=== PATIENT | female | born 1955 ===

== ENCOUNTER 2016-11-03 13:06 | Emergency (ER) | payer BC ==
--- NOTE | 2016-11-03 13:51 | ED ---
Lower Extremity - HPI Summary HPI Summary: Patient was bowling four nights ago when her "hip caught" and she had pain in the hip. She thought it would improve but over the days it has become more painful. She has a history of left hip fracture and worried she might had a fracture in her right hip too. She is able to bear weight with increasing pain, so she went to [facility] where x-rays were read as possibly positive, therefore she was sent to the ED for further evaluation. She denies N/T or shortening of the limb. She has not taken anything for pain today. - History of Current Complaint Chief Complaint: EDExtremityLower Stated Complaint: RT HIP PAIN Time Seen by Provider: 11/03/16 13:45 Hx Obtained From: Patient Mechanism Of Injury: Twisted Onset of Pain: Immediate Onset/Duration: Minutes Severity Initially: Mild Severity Currently: Severe Pain Intensity: 6 Timing: Constant Location: Is Discrete @ - right hip Character Of Pain: Sharp, Aching Associated Signs And Symptoms: Positive: Negative Aggravating Factor(s): Standing, Ambulation Alleviating Factor(s): Rest Able to Bear Weight: Yes - with pain - Allergies/Home Medications Allergies/Adverse Reactions: Allergies Allergy/AdvReac Type Severity Reaction Status Date / Time No Known Allergies Allergy Verified 11/03/16 13:08 PMH/Surg Hx/FS Hx/Imm Hx Musculoskeletal History: Reports: Hx Joint Replacement - left hip - Surgical History Surgery Procedure, Year, and Place: left hip replacement Infectious Disease History: No Infectious Disease History: Denies: Traveled Outside the [place] in Last 30 Days - Social History Occupation: Employed Full-time Lives: With Family Alcohol Use: Rare Substance Use Type: Reports: None Smoking Status (MU): Never Smoked Tobacco Review of Systems Negative: Fever, Chills Positive: Arthralgia - right hip, Myalgia Negative: Bruising All Other Systems Reviewed And Are Negative: Yes Physical Exam Triage Information Reviewed: Yes Vital Signs On Initial Exam: Initial Vitals Temp Pulse Resp BP Pulse Ox 99.8 F 92 16 166/98 100 11/03/16 13:08 11/03/16 13:08 11/03/16 13:08 11/03/16 13:08 11/03/16 13:08 Vital Signs Reviewed: Yes Appearance: Positive: Well-Appearing, Well-Nourished, Pain Distress Skin: Positive: Warm, Skin Color Reflects Adequate Perfusion, Dry, Soft Head/Face: Positive: Normal Head/Face Inspection Eyes: Positive: EOMI, TRACE, Conjunctiva Clear ENT: Positive: Hearing grossly normal Respiratory/Lung Sounds: Positive: Breath Sounds Present Cardiovascular: Positive: RRR Musculoskeletal: Positive: Pain @. Negative: Edema Right Neurological: Positive: Sensory/Motor Intact, Alert, Oriented to Person Place, Time, NV Bundle Intact Distally, Abnormal Gait Psychiatric: Positive: Affect/Mood Appropriate AVPU Assessment: Alert Diagnostics - Vital Signs Vital Signs Temp Pulse Resp BP Pulse Ox 11/03/16 13:08 99.8 F 92 16 166/98 100 - Laboratory Lab Statement: Any lab studies that have been ordered have been reviewed, and results considered in the medical decision making process. - CT No standard instances CT Interpretation: No Acute Changes CT Interpretation Completed By: Radiologist Lower Extremity Course/Dx - Diagnoses Differential Diagnosis/HQI/PQRI: Positive: Arthritis, Bursitis, Cellulitis, Contusion, Fracture (Closed), Infection, Sprain, Strain Provider Diagnoses: Right hip pain, Osteoarthritis Discharge - Discharge Plan Condition: Stable Disposition: HOME Patient Education Materials: Osteoarthritis (ED) Referrals: Michael Rodriguez MD [Medical Doctor] - Additional Instructions: Please call Dr. Rodriguez's office for an appointment in [place] in 3-5 days for evaluation. Use your cane or walker to take pressure off your hip, and use 600mg of ibuprofen three times daily with meals for the next 3-5 days to decrease swelling and pain. Return to the emergency department if symptom worsen.
[2016-11-03] MEDS ORDERED: Ibuprofen TAB* 400 MG PO ONE (14:16)
--- NOTE | 2016-11-03 14:20 | RAD ---
Indication: RIGHT hip pain following bowling on Tuesday. Post LEFT hip replacement. Comparison: None. Technique: Noncontrast CT through the mid to lower pelvis and proximal femurs. Multiplanar reformation. Report: Artifact from the LEFT hip prosthesis. No suspicious finding of the visualized pelvic viscera. Negative for free pelvic fluid. Negative for lymphadenopathy within the [id number]. Negative for superficial or retroperitoneal hematoma. No CT evidence for fracture of the RIGHT proximal femur or visualized pelvis. Severe superior joint space narrowing at the RIGHT hip as well as advanced marginal osteophytosis, partial loss of femoral head sphericity, and acetabular roof subchondral sclerosis and subchondral cyst formation with 1.6 x 1.2 x 1.9 cm subchondral cyst. Probable chronically fragmented osteophytes at the acetabular margin. Only a small volume of RIGHT hip joint fluid evident. No CT stigmata of LEFT hip prosthesis loosening or periprosthetic fracture. Diffuse predominant mild muscle atrophy with more significant atrophy of the LEFT gluteus medius and gluteus tonya muscles. IMPRESSION: 1. No CT evidence for RIGHT femur or pelvic fracture or articular malalignment. 2. Advanced osteoarthritis of the RIGHT hip; Kellgren and Devang grade 4. 3. Post LEFT hip replacement without suspicious finding.
[2016-11-03 15:39] VITALS: BP 149/92
== END 2016-11-03 15:45 | disposition home or self-care (01) ==
LOC: ED 13:06 → MERGE 13:06 → ED 15:45
DX: M16.11 Unilateral primary osteoarthritis, right hip (principal); M25.551 Pain in right hip
CPT/HCPCS: 99285; A9270-GY

== ENCOUNTER 2017-06-27 10:18 | Inpatient (IN) | payer BC ==
--- NOTE | 2017-06-17 18:56 | HP ---
PREOPERATIVE HISTORY AND PHYSICAL: DATE OF ADMISSION: 06/27/17 PROVIDER: Dr. Michael Rodriguez * (DICTATED BY FELICE DRAPER) CHIEF COMPLAINT: Right hip pain. HISTORY OF PRESENT ILLNESS: Ms. Brown is a 62-year-old female who has had ongoing trouble with her right hip over the past year. She was initially taking ibuprofen and Tylenol; however, pain began to become more severe. She has a lot of stiffness when she gets up in the morning and if she has been sitting for a prolonged period of time. She has difficulty sleeping. She is unable to ambulate significant distances and is interested in surgical intervention for correction of the problem at this point. PAST MEDICAL HISTORY: Hypertension. PAST SURGICAL HISTORY: Tonsillectomy in 1965, cholecystectomy in 1991, ruptured ectopic in 1981 and 1993, tubal ligation, left hip replacement in 2005. She reports significant nausea with anesthesia as well. CURRENT MEDICATIONS: 1. Multivitamin 1 p.o. q. day. 2. Tramadol 50 mg as needed for pain. 3. Prilosec over the counter once daily. 4. Advil 200 mg p.o. as needed. ALLERGIES: NAPROXEN causes an upset stomach, OXYCODONE causes severe nausea. FAMILY HISTORY: Positive for heart disease and diabetes. SOCIAL HISTORY: She is . She works for [employer]. She lives with her . She is a social services coordinator. She quit smoking 20 years ago and reports that she was "a social smoker" prior to that. She drinks alcoholic beverages occasionally. She exercises sporadically. REVIEW OF SYSTEMS: Constitutional: Negative for recent hospitalizations, fevers, chills, night sweats, or unexplained weight loss. Head: Negative for headaches, lightheadedness, or balance problems. Cardiovascular: Negative for chest or arm pain with exertion, history of heart attack, heart murmur, heart palpitations. Positive for high blood pressure. Negative for embolism or deep vein thrombosis. Respiratory: Negative for chronic cough, shortness of breath with exertion, asthma, or COPD. Gastrointestinal: Positive for heartburn. Negative for nausea, vomiting, diarrhea, or constipation. Negative for GERD. Genitourinary: Negative for nighttime urination, frequency of urination, urinary tract infections, or kidney problem. Musculoskeletal: Negative for chronic back pain. Negative for recent fracture. Skin: Negative for rashes, lesions, lumps, or sores. Neurologic: Negative for seizure, stroke, epilepsy, depression, or anxiety. Endocrine: Negative for diabetes or thyroid problems. Hematology: Negative for easy bleeding, bruising, or anemia. PHYSICAL EXAMINATION GENERAL: She is a well-developed, well-nourished female, in no acute distress at rest. She is alert and oriented x3 with appropriate mood and affect. Gait: She ambulates with a nonantalgic gait. VITAL SIGNS: The patient is 5 feet 5 inches, 185 pounds, blood pressure 142/78 , pulse 65, temperature 98.6. HEENT: Normocephalic, atraumatic. Hearing and vision are grossly intact. NECK: Trachea is midline. RESPIRATORY: Lungs are clear to auscultation bilaterally. No wheezes, rales, or rhonchi. CARDIOVASCULAR: Regular rate and rhythm. No murmurs, rubs, or gallops. Normal S1, S2. ABDOMEN: Soft, nondistended, nontender. Normal bowel sounds. EXTREMITIES: Exam of the right hip, motion of the hip is painful. She has 5 to 10 degrees of internal rotation, 20 degrees of external rotation, but more painful. She flexes her hip to 90 degrees. She has good strength with all range of motion and there is good stability to the hip. Sensation to light touch is intact distally. She has a normal vascular exam. DIAGNOSTIC STUDIES: X-rays of the hip show significant loss of the joint space without osteoarthritic changes. IMPRESSION: Right hip osteoarthritis. PLAN: The patient is to undergo right total hip arthroplasty by Dr. Rodriguez, . The risks, benefits, and postoperative course were discussed with the patient at length and she would like to proceed. A prescription for [place] was sent to the patient's pharmacy for postoperative pain as the OXYCODONE gives her significant nausea. She reports that she had good pain control with previous surgeries using the [place]. She was also given a prescription for Coumadin for postop DVT prophylaxis. She was placed on a course of doxycycline for a recent tick bite to her shoulder; however, she denies any significant arthralgias or any sort of rash. All of her questions were answered to her full satisfaction. She is understanding to call should she develop any problems or concerns. FELICE DRAPER [id number]/[facility] #: [id number] ERA
[~2017-06-27 10:18] MED LIST: Buffered Lidocaine 0.9% SYRIN* 5 ML/SYR SYRINGE INTRADERM ONE; Famotidine IV* 10 MG/ML 2 ML (20 mg) IV ONE
[2017-06-27] MEDS ORDERED: Famotidine IV* 10 MG/ML 2 ML (20 mg) ONE (10:29)
[2017-06-27] MEDS ORDERED: Buffered Lidocaine 0.9% SYRIN* 5 ML/SYR SYRINGE ONE (10:29)
[2017-06-27] MEDS ORDERED: ceFAZolin 2 GM PREMIX (*) 2 GM/50 ML BAG IVPB ONE (10:30)
[2017-06-27] MEDS ORDERED: Ketorolac INJ* 30 MG/ML 1 ML VIAL ONE (11:11)
[2017-06-27] MEDS ORDERED: Ondansetron INJ* 2 MG/ML VIAL ONE (11:11)
[2017-06-27] MEDS ORDERED: Propofol* 10 MG/ML 20 ML BTL IV PUSH ONE ×2 (11:11→14:04)
[2017-06-27] MEDS ORDERED: fentaNYL* 50 MCG/ML 2 ML VIAL (100 MCG VIAL) ONE (11:11)
[2017-06-27] MEDS ORDERED: Midazolam* 1 MG/ML 5 ML VIAL (5 MG) ONE (11:11)
[2017-06-27] MEDS ORDERED: KETAMINE HCL* 50 MG/ML 10 ML VIAL ONE (11:11)
[2017-06-27] MEDS ORDERED: Lidocaine 2% PF * 5 ML VIAL ONE (11:11)
[2017-06-27] MEDS ORDERED: Dexamethasone IV* 4 MG/ML 1 ML (4 MG) ONE (11:11)
[2017-06-27] MEDS ORDERED: Bupivacaine 0.5% SDV PF* 30 ML VIAL ONE (12:00)
[2017-06-27] MEDS ORDERED: Morphine PF AMP (0.5MG/ML)* 5 MG/10 ML AMP ONE (12:00)
[2017-06-27] MEDS ORDERED: Midazolam* 1 MG/ML 2 ML VIAL (2 MG) ONE ×2 (12:41→13:28)
[2017-06-27] MEDS ORDERED: Phenylephrine IV* 40 MCG/ML 10 ML SYRINGE ONE (12:59)
[2017-06-27] MEDS ORDERED: Phenylephrine INJ* 10 MG/ML 1 ML VIAL (10 MG) ONE (13:00)
[2017-06-27] MEDS ORDERED: Propofol* 500 MG/50 ML BTL ONE (13:09)
[2017-06-27] MEDS ORDERED: diPHENhydraMINE IV* 50 MG/ML 1 ml VIAL (BENADRYL) ONE (13:28)
[2017-06-27] MEDS ORDERED: fentaNYL* 50 MCG/ML 2 ML VIAL (100 MCG VIAL) IV PRN (13:57)
[2017-06-27] MEDS ORDERED: Phenylephrine INJ* 50 MG in NS 0.9% 250 ML* 245 ML IV PRN (13:57)
[2017-06-27] MEDS ORDERED: Ondansetron ODT TAB* 4 MG PO PRN (13:57)
[2017-06-27] MEDS ORDERED: Naloxone* 0.4 MG/ML 1 ML VIAL IV PRN (14:06)
[2017-06-27] MEDS ORDERED: Ketorolac INJ* 30 MG/ML 1 ML VIAL IV PRN (14:06)
[2017-06-27] MEDS ORDERED: Ondansetron INJ* 2 MG/ML VIAL IV PRN (14:06)
[2017-06-27] MEDS ORDERED: Bisacodyl SUPP* 10 MG SUPP PR PRN (14:57)
[2017-06-27] MEDS ORDERED: Polyethylene Glycol 3350* 17 GM PACKET PO PRN (14:57)
[2017-06-27] MEDS ORDERED: D5W 1/2 NS 1000 ML BAG* 1,000 ML IV SCH (15:00)
--- NOTE | 2017-06-27 15:58 | RAD ---
Indication: Postop RIGHT total hip replacement. Comparison: May 31, 2017 Technique: Low AP pelvis supine technique 1520 hours Report: RIGHT total hip prosthesis in place with normal alignment in the AP projection. No periprosthetic fracture evident in the AP projection. Overlying cutaneous lanie, soft tissue edema, and subcutaneous emphysema. IMPRESSION: Unremarkable immediate postop RIGHT total hip prosthesis in the AP projection.
[2017-06-27] MEDS: Metoprolol Succinate XL TAB* 50 MG PO SCH (17:46)
[2017-06-27] MEDS: diPHENhydraMINE IV* 50 MG/ML 1 ml VIAL (BENADRYL) IV PRN (19:53)
[2017-06-27] MEDS: HYDROcodone/ACETAMIN 5-325 MG* 1 TAB PO PRN ×2 (19:57→23:32)
[2017-06-27] MEDS: Docusate CAP* 100 MG PO SCH (20:34)
[2017-06-27] MEDS: ceFAZolin 1 GM VIAL(*) 1 GM in NS 0.9% 50 ML* 50 ML IVPB SCH (20:34)
[2017-06-27] MEDS: Ferrous Sulfate TAB* 325 MG PO SCH (20:34)
[2017-06-27] MEDS: Omeprazole CAP* 20 MG PO SCH (20:34)
[2017-06-27] MEDS: Magnesium Hydroxide LIQ* 30 ML UDC PO SCH (20:34)
[2017-06-27] MEDS ORDERED: Warfarin TAB(*) 4 MG PO ONE (21:00)
[2017-06-28] MEDS: diPHENhydraMINE IV* 50 MG/ML 1 ml VIAL (BENADRYL) IV PRN (02:07)
--- NOTE | 2017-06-28 04:02 | OP ---
OPERATIVE REPORT: DATE OF OPERATION: 06/27/17 - Inpatient, room SSU 341-02 DATE OF : 57 SURGEON: Michael Rodriguez MD. NURSING TECHN: Paola Ferrer RPA. ANESTHESIOLOGIST: Yonny Garvey MD ANESTHESIA: Spinal sedation. PRE-OP DIAGNOSIS: Osteoarthritis, right hip. POST-OP DIAGNOSIS: Osteoarthritis, right hip. OPERATIVE PROCEDURE: Right total hip arthroplasty. ESTIMATED BLOOD LOSS: Less than 150 cc. COMPLICATIONS: None. HARDWARE: Hayes M/L taper 7.5 stem, standard offset with reduced neck. Fib 48 mm Continuum cup with 15-degree elevated liner, vitamin E impregnated, -3.5 mm, 32 mm femoral head. SUMMARY: Mrs. Brown is a 62-year-old female who has been having more troubles with her right hip over the past year. She had been treated conservatively with anti-inflammatories and pain killers but she has become more and more limited in her ability to get up and get around. I discussed with her that a total hip arthroplasty should work well to decrease her pain and improve her function. She had previously undergone a left total hip arthroplasty and did understand risks of surgery such as infection, scar formation, stiffness, DVT, pulmonary embolism, hardware failure, and leg length discrepancy. She had been declared medically optimized prior to surgery and wished to proceed. DESCRIPTION OF PROCEDURE: The patient was brought to the OR and spinal anesthesia was introduced. Aviles catheter was placed. She was then rolled into the left lateral decubitus position and an axillary roll was placed. She reported she was quite comfortable. Right hip area was prepped and then draped. Incision was made centered on the greater trochanter extending proximally and distally for about 9 cm. Incision was carried down through the skin and subcutaneous fat. Small bleeders encountered were ligated using electrocautery. Fascia was found and sharp incision of the fascia was made. Muscle was split bluntly proximally. Charnley retractor was placed and bursa over the greater trochanter was taken down using electrocautery. Sharp Hohmann was placed under the gluteus medius/gluteus minimus and nice exposure of the piriformis and short external rotators was obtained. Using electrocautery, short external rotators and capsule were taken down from the posterior aspect of the greater trochanter and a gush of clear joint fluid was obtained. T- capsulotomy was made and hip was then easily dislocated. A cutting guide was placed and the femoral neck was marked. The femoral head was then resected. Anterior and inferior acetabular retractors were placed and nice exposure to the acetabulum was obtained. Capsule was peeled away from labrum and labrum was sharply incised, so that capsule could later be repaired. Her femoral head was smaller than she was templated as I templated her at about 48 mm femoral head with a 54 cup, but her femoral head only measured approximately 44 mm. Beginning with a 42 mm, acetabulums were deepened and then expanded. Osteophytes were taken down anteriorly as these were fairly easily pliable and seemed to be continuous with the labrum. I also had been concerned not to medialize her much because I thought we would need an extended offset and I did not want to have to use a longer head. At 47 mm, had a nice [id number] fit, and a 48-mm cup was then impacted in. One screw was placed and nice bite was obtained. Trial liner was placed and attention was turned to the proximal femur. Box osteotome was used to open the femoral canal and the intramedullary guide was placed. Beginning with a 5 broach, she was progressively broached. She had templated to a 9, but considering that the head was smaller than what I had and that I had a nice bite at 7.5, I felt we were good at that point. She was trialed with an extended offset standard and then reduced offset, and I liked the fit of the reduced offset best. She was then trialed with a 0 and minus head and she seemed a little bit long with a 0. She had very good stability with flexion, but when coming into the internal rotation at about 30 degrees, she would then start to subluxate, so that she would be out by 45 degrees. Trial parts were removed and elevated liner was impacted into place. A 7.5 mm stent was also impacted in place and she was again trialed with the minus and 0 heads. I liked the minus head best and a -3.5, 32 mm head was then impacted into place. Her stability had improved where she did not start to lever out until about 70 degrees of internal rotation. She was also not tight in extension. Hip was copiously pulse lavaged. Capsule and short external rotators were repaired together to the posterior aspect of the greater trochanter. Fascia was repaired using interrupted #1 Vicryl sutures and the subcutaneous fat was repaired in layers. Skin was closed using lanie. Sterile dressing was applied and the patient was then rolled onto the hospital bed. She was then stable on transfer to the recovery room. [id number]/[facility] #: [id number] MTDD
[2017-06-28] MEDS ORDERED: Ondansetron TAB* 4 MG PO PRN (04:35)
[2017-06-28] MEDS ORDERED: diPHENhydraMINE IV* 50 MG/ML 1 ml VIAL (BENADRYL) IV PRN (04:35)
[2017-06-28] MEDS ORDERED: Morphine INJ* 10 MG/ML 1 ML CARPUJECT IV PRN (04:35)
[2017-06-28] MEDS ORDERED: Ondansetron INJ* 2 MG/ML VIAL IV PRN (04:35)
[2017-06-28] MEDS ORDERED: HYDROcodone/ACETAMIN 5-325 MG* 1 TAB PO PRN (04:35)
[2017-06-28] MEDS: HYDROcodone/ACETAMIN 5-325 MG* 1 TAB PO PRN ×5 (05:00→22:37)
[2017-06-28] MEDS: ceFAZolin 1 GM VIAL(*) 1 GM in NS 0.9% 50 ML* 50 ML IVPB SCH ×2 (05:01→13:48)
[2017-06-28 05:03] LABS: Hematocrit 33 % (35-47); Hemoglobin 11.5 g/dl (12.0-16.0)
[2017-06-28 05:23] LABS: BUN/Creatinine Ratio 12.3 (8-20); Calcium 8.4 mg/dL (8.6-10.3); EGFR African American 104.2 (>60); Potassium 3.9 mmol/L (3.5-5.0)
[2017-06-28] MEDS: Omeprazole CAP* 20 MG PO SCH ×2 (08:35→19:48)
[2017-06-28] MEDS: Magnesium Hydroxide LIQ* 30 ML UDC PO SCH ×2 (08:35→19:50)
[2017-06-28] MEDS: Docusate CAP* 100 MG PO SCH ×2 (08:35→19:49)
[2017-06-28] MEDS: Vitamin THERAPEUTIC TAB PO SCH (08:36)
[2017-06-28] MEDS: Ferrous Sulfate TAB* 325 MG PO SCH ×2 (08:36→19:48)
[2017-06-28] MEDS: Heparin VIAL(*) 5000 UNITS/ML VIAL (FIVE THOUSAND) SUBCUT SCH ×2 (12:07→19:48)
--- NOTE | 2017-06-28 13:37 | PN ---
Progress Note - Progress Note Date of Service: 06/28/17 SOAP: Subjective: Pt sitting comfortably in chair. No complaint of pain. Objective: Dressing C/D/I. Calves soft, nontender. 2+ DP pulses. Sensation intact to light touch distally. Vital Signs: Temp Pulse Resp BP Pulse Ox 99.5 F 72 16 111/60 98 06/28/17 11:12 06/28/17 11:12 06/28/17 12:06 06/28/17 11:46 06/28/17 11:12 Laboratory Last Values Hgb 11.5 g/dl (12.0-16.0) L 06/28/17 04:39 Hct 33 % (35-47) L 06/28/17 04:39 INR (Anticoag Therapy) 0.93 (0.89-1.11) 06/28/17 04:39 Sodium 136 mmol/L (133-145) 06/28/17 04:39 Potassium 3.9 mmol/L (3.5-5.0) 06/28/17 04:39 Chloride 103 mmol/L (101-111) 06/28/17 04:39 Carbon Dioxide 27 mmol/L (22-32) 06/28/17 04:39 Anion Gap 6 mmol/L (2-11) 06/28/17 04:39 BUN 9 mg/dL (6-24) 06/28/17 04:39 Creatinine 0.73 mg/dL (0.51-0.95) 06/28/17 04:39 Est GFR ( Amer) 104.2 (>60) 06/28/17 04:39 Est GFR (Non-Af Amer) 81.0 (>60) 06/28/17 04:39 BUN/Creatinine Ratio 12.3 (8-20) 06/28/17 04:39 Glucose 156 mg/dL (70-100) H 06/28/17 04:39 Calcium 8.4 mg/dL (8.6-10.3) L 06/28/17 04:39 Assessment: 62 yo female s/p right LINDA POD #1 Plan: OOB PT/OT WBAT RLE Pain Control DVT prophylaxis - Coumadin 8mg tonight
[2017-06-28] MEDS ORDERED: Warfarin TAB(*) 4 MG PO ONE (17:00)
[2017-06-28] MEDS: Metoprolol Succinate XL TAB* 50 MG PO SCH (17:23)
[2017-06-29] MEDS: Acetaminophen TAB* 325 MG PO PRN ×2 (02:20→08:35)
[2017-06-29] MEDS: Heparin VIAL(*) 5000 UNITS/ML VIAL (FIVE THOUSAND) SUBCUT SCH ×2 (04:03→12:26)
[2017-06-29 05:41] LABS: Hematocrit 31 % (35-47); Hemoglobin 10.6 g/dl (12.0-16.0)
--- NOTE | 2017-06-29 08:28 | PN ---
Progress Note - Progress Note Date of Service: 06/29/17 Note: Pt reports good night. Only complaint is about how rough the toilet paper is and she had her drop off her own supply. VSS: Afebrile Labs: H/H: 10., INR: 1.67 Right hip: Wound benign, no drainage, no erythema at the wound edges, but the area where the abd pad was has a light reddish discoloration. Nontender to palpation, blanches and immediately pinks up with pressure. A: Stable P: She inquired if it would be possible to go home today. D/W her that if she does well with PT today, definitely something that can occur. Cont OOB/PT, DVT prophalaxis, care.
[2017-06-29] MEDS: Magnesium Hydroxide LIQ* 30 ML UDC PO SCH (08:31)
[2017-06-29] MEDS: Docusate CAP* 100 MG PO SCH (08:31)
[2017-06-29] MEDS: Vitamin THERAPEUTIC TAB PO SCH (08:35)
[2017-06-29] MEDS: Ferrous Sulfate TAB* 325 MG PO SCH (08:35)
[2017-06-29] MEDS: Omeprazole CAP* 20 MG PO SCH (08:35)
[2017-06-29 12:35] VITALS: BP 131/68
[2017-06-29] MEDS ORDERED: Warfarin TAB(*) 4 MG PO ONE (14:00)
--- NOTE | 2017-06-30 01:02 | DS ---
Amended report to enter cosigning physician on report. DISCHARGE SUMMARY: ADMISSION DATE: 06/27/17 DISCHARGE DATE: 06/29/17 SURGEON: Dr. Rodriguez* (dictated by FELICE Cordon). SENIOR MAINTENANCE MACHINIST: Paola Ferrer, physician news assistant. PREOP DIAGNOSIS: Osteoarthritis of the right hip. POSTOP DIAGNOSIS: Osteoarthritis of the right hip. OPERATIVE PROCEDURE: Right total hip arthroplasty. CONSULTS: Included Physical Therapy and Occupational Therapy. HISTORY OF PRESENT ILLNESS: Mrs. Brown is a 62-year-old female who had been having more troubles with her right hip over the past year. She had been treated conservatively with anti-inflammatories and painkillers, but still became more limited in her ability to get up and get around. She elected for a right total hip arthroplasty with understanding of the risks of surgery such as infection, scar formation, stiffness, DVT, pulmonary embolism, hardware failure , and leg length discrepancy. HOSPITAL COURSE: Mrs. Brown was admitted to [facility]. On 06/27, she underwent right total hip arthroplasty. Postoperatively, she recovered in the short stay surgical unit. On postop day #1, she was advanced to a regular diet without difficulty, pain was controlled well. Labs and vitals remained stable throughout her stay. She was able to weight bear as tolerated on the right lower extremity. She advanced appropriately with physical therapy and occupational therapy. DVT prophylaxis was managed with heparin and coumadin until reaching a therapeutic INR. By postop day #2, she was orthopedically and medically stable for discharge to go home with visiting nurse services. PHYSICAL EXAM: Patient was calm and cooperative in no acute distress. Alert and oriented. Vital Signs: On day of discharge, oral temperature was 98.1 Fahrenheit, pulse rate was 93 beats per minute, respiratory rate 17, oxygen saturation 95%, blood pressure 135/74. Examination of right lower extremity demonstrated the surgical incision on the posterior aspect of the hip. Incision was benign without erythema of wound edges, no drainage or visible clinical signs of infection. A dry sterile dressing was applied. Patient did have active ankle dorsiflexion and plantarflexion. 2+ palpable dorsalis pedis pulse. Sensation to light touch was intact. DIAGNOSTIC STUDIES/LAB DATA: On day of discharge, hemoglobin 10.6, hematocrit 31. INR 1.67. CONDITION ON DISCHARGE: Stable. DISCHARGE INSTRUCTIONS: Ms. Patricia Brown is a 62-year-old female on postop day #2 status post right hip arthroplasty, which was uncomplicated. She is orthopedically and medically stable for discharge to home with services. Labs and vitals signs are stable. She will restart home medications. She will take 4 mg of Coumadin tonight and will have her INR rechecked tomorrow. INRs will be drawn, Mondays and by visiting nurse services. Visiting nurse will perform wound checks and remove sutures in 10-12 days. She will remain weightbearing as tolerated on the right lower extremity. She will have home PT twice per week. She will have [place] for pain control. She will take Colace up to 3 times per day for constipation and will follow up with Dr. Rodriguez on 07/26. Should she have any fever, chills, erythema of the wound site or any other concerns, please call the office immediately. If you experience chest pain or shortness of breath proceed immediately to the ER. FELICE BARCENAS [id number]/[facility] #: [id number] ERA
== END 2017-06-29 13:45 | disposition home health service (06) | DRG 301 ==
LOC: AA 10:18 → SSU 16:56
PROVIDERS: ADMIT Orthopaedic Surgery; ATTEND Orthopaedic Surgery
PROC: 0SR902A Replacement of Right Hip Joint with Metal on Polyethylene Synthetic Substitute, Uncemented, Open Approach (ICD-10-PCS; principal; 2017-06-27 12:15)
DX: M16.11 Unilateral primary osteoarthritis, right hip (principal); E78.5 Hyperlipidemia, unspecified; I10 Essential (primary) hypertension; K21.9 Gastro-esophageal reflux disease without esophagitis; Z98.51 Tubal ligation status; Z88.5 Allergy status to narcotic agent; Z82.49 Family history of ischemic heart disease and other diseases of the circulatory system; Z83.3 Family history of diabetes mellitus; Z87.891 Personal history of nicotine dependence
CPT/HCPCS: 36415; 72170; 80048; 85014; 85018; 85610; A9270-GY; C1713; C1776; J0690; J1100; J1200; J1644; J1885; J2250; J2405; J2704; J3010